=== PATIENT | male | born 1980 | race Hispanic/Latino ===

== ENCOUNTER 2022-08-27 20:49 | Emergency (ER) | payer OTHER ==
[~2022-08-27] VITALS: Ht 167.6 cm; Wt 74.0 kg
[2022-08-27 20:58] VITALS: BP 116/56
[2022-08-27 21:15] VITALS: BP 109/73
[2022-08-27 21:30] VITALS: BP 110/69
[2022-08-27 21:45] VITALS: BP 102/69
[2022-08-27] MEDS ORDERED: NAPROXEN500 MG PO (23:12)
[2022-08-27 23:17] VITALS: BP 109/73
[2022-08-28] MEDS ORDERED: METHOCARBAMOL500 MG PO (19:16)
== END 2022-08-27 23:30 | disposition home or self-care (01) | DRG 552 ==
LOC: ED 20:49
DX: S33.5XXA Sprain of ligaments of lumbar spine, initial encounter (principal); V47.5XXA Car driver injured in collision with fixed or stationary object in traffic accident, initial encounter

== ENCOUNTER 2022-08-28 13:47 | Emergency (ER) | payer SELFPAY ==
[~2022-08-28] VITALS: Ht 167.6 cm; Wt 80.0 kg
[~2022-08-28 13:47] MED LIST: NAPROXEN500 MG PO
[2022-08-28 14:16] LABS: BASO% 0.5 % (0-3); EOS% 2.8 % (0-8); HEMATOCRIT 44.3 % (39.0-50.0); HEMOGLOBIN 14.8 g/dl (14.0-18.0); IMMATURE GRANULOCYTES 0.2 % (0.0-5.0); LYMPH% 28.7 % (15-41); MEAN CELL VOLUME 101.1 fL CALC (80.0-100.0); MEAN CORPUSCULAR HGB 33.8 pG CALC (26.0-32.0); MEAN CORPUSCULAR HGB CONC 33.4 g/dL CAL (32.0-36.0); MONO% 10.6 % (2-13); NEUT# 3.47 thou/uL (1.82-7.42); NEUT% 57.2 % (42-76); RED BLOOD COUNT 4.38 mill/uL (4.70-6.10); RED CELL DISTRI WIDTH 13.7 % (11.5-15.5)
[2022-08-28 14:29] LABS: ALBUMIN 4.4 g/dL (3.2-5.0); ALKALINE PHOSPHATASE 83 u/l (38-126); ANION GAP 9 (6-22 (CALC)); BILIRUBIN, TOTAL 0.3 mg/dL (0.2-1.3); BUN 11 mg/dL (9-20); BUN/CREATININE RATIO 15 (12-20 (CALC)); CARBON DIOXIDE 30 mmol/l (22-30); CHLORIDE 104 mmol/l (95-108); CREATININE 0.7 mg/dL (0.7-1.3); GFR FOR AFR.AMER. > 60 ML/MIN (>=60 (CALC)); GFR OTHER RACES > 60 ML/MIN (>=60 (CALC)); SGOT/AST 33 u/l (17-59); SODIUM 139 mmol/l (137-146); TOTAL PROTEIN 7.8 g/dL (6.3-8.2)
[2022-08-28 17:55] LABS: URINE BILIRUBIN - DIPSTICK NEGATIVE (NEGATIVE); URINE BLOOD DIPSTICK NEGATIVE (NEGATIVE); URINE COLOR YELLOW; URINE GLUCOSE - DIPSTICK NEGATIVE (NEGATIVE); URINE KETONE NEGATIVE (NEGATIVE); URINE LEUK ESTERASE NEGATIVE (NEGATIVE); URINE PROTEIN - DIPSTICK NEGATIVE (NEG-TRACE); URINE UROBILINOGEN - DIPSTICK 0.2 E.U./dL (0.2)
[2022-08-28 17:56] LABS: URINE NITRITE - DIPSTICK NEGATIVE (Negative)
[2022-08-28] MEDS ORDERED: METHOCARBAMOL500 MG PO (19:16)
[2022-08-28 19:52] VITALS: BP 114/70
== END 2022-08-28 19:56 | disposition home or self-care (01) | DRG 313 ==
LOC: ED 13:47
PROVIDERS: Nurse Practitioner
DX: R07.89 Other chest pain (principal)
CPT/HCPCS: Q9967

== ENCOUNTER 2022-08-28 22:33 | Emergency (ER) | payer SELFPAY ==
[~2022-08-28 22:33] MED LIST changes: +METHOCARBAMOL500 MG PO
== END 2022-08-28 23:54 | disposition left against medical advice (07) | DRG 951 ==
LOC: ED 22:33 → LWOBS 22:41
DX: Z53.21 Procedure and treatment not carried out due to patient leaving prior to being seen by health care provider (principal)